=== PATIENT | male | born 1960 | race Caucasian/White ===

== ENCOUNTER 2018-05-06 08:50 | Outpatient (RCR) | payer BC ==
[~2018-05-06 08:50] MED LIST: ASPIR 8181 MG PO; DIGOXIN125 MCG PO; FUROSEMIDE40 MG PO; LISINOPRIL2.5 MG PO; METOPROLOL SUCC25 MG PO; PRAVASTATIN SOD10 MG; PRAVASTATIN SOD10 MG PO; THIAMINE HCL100 MG PO; ZOLOFT50 MG PO
== END 2018-05-07 ==
LOC: OT 08:50
PROVIDERS: ATTEND Physical Medicine & Rehabilitation
DX: G45.9 Transient cerebral ischemic attack, unspecified (principal); M62.81 Muscle weakness (generalized); R26.81 Unsteadiness on feet; R26.9 Unspecified abnormalities of gait and mobility
CPT/HCPCS: 97139

== ENCOUNTER 2018-06-03 08:55 | Outpatient (RCR) | payer BC | END 2018-06-04 | LOC: PT 08:55 | PROVIDERS: ATTEND Physical Medicine & Rehabilitation | DX: G45.9 Transient cerebral ischemic attack, unspecified (principal); M62.81 Muscle weakness (generalized); R26.9 Unspecified abnormalities of gait and mobility; R26.81 Unsteadiness on feet; R53.1 Weakness; R27.9 Unspecified lack of coordination | CPT/HCPCS: 97139 ==

== ENCOUNTER 2018-07-02 09:44 | Outpatient (RCR) | payer BC | END 2018-07-05 | LOC: OT 09:44 | PROVIDERS: ATTEND Physical Medicine & Rehabilitation | DX: G45.9 Transient cerebral ischemic attack, unspecified (principal); M62.81 Muscle weakness (generalized); R26.9 Unspecified abnormalities of gait and mobility; R26.81 Unsteadiness on feet | CPT/HCPCS: 97139 ==

== ENCOUNTER 2018-07-30 09:45 | Outpatient (RCR) | payer BC, MEDICARE | END 2018-08-04 | LOC: OT 09:45 | PROVIDERS: ATTEND Physical Medicine & Rehabilitation | DX: G45.9 Transient cerebral ischemic attack, unspecified (principal); I63.9 Cerebral infarction, unspecified; R53.1 Weakness | CPT/HCPCS: 97139 ==

== ENCOUNTER 2018-08-06 09:53 | Outpatient (RCR) | payer BC, MEDICARE | END 2018-09-04 | LOC: OT 09:53 | PROVIDERS: ATTEND Physical Medicine & Rehabilitation | DX: G45.9 Transient cerebral ischemic attack, unspecified (principal); M62.81 Muscle weakness (generalized); R26.9 Unspecified abnormalities of gait and mobility; R26.81 Unsteadiness on feet ==